=== PATIENT | female | born 1965 | race Caucasian/White ===

== ENCOUNTER → 2017-09-14 | Outpatient (CLI) | payer BC | LOC: COL.RAD 12:47 | DX: K80.20 Calculus of gallbladder without cholecystitis without obstruction (principal) ==

== ENCOUNTER → 2018-07-07 | Outpatient (CLI) | payer BC | LOC: MC.RAD 08:39 | DX: Z12.31 Encounter for screening mammogram for malignant neoplasm of breast (principal) ==

== ENCOUNTER → 2018-11-21 | Outpatient (CLI) | payer BC ==
[2018-11-21 11:23] LABS: ALBUMIN 4.1 gm/dL (3.5-5.0); CALCIUM 9.8 mg/dL (8.4-10.2); CHOLESTEROL RISK RATIO 4.4; CREATININE, serum 0.73 mg/dL (0.52-1.25); POTASSIUM 4.2 mmol/L (3.4-5.0); TOTAL PROTEIN 6.8 gm/dL (6.4-8.2)
[2018-11-21 11:52] LABS: THYROID STIMULATING HORMONE 1.32 uIU/mL (0.465-4.680)
[2018-11-22 00:28] LABS: FOLLICLE STIMULATING HORMONE 38.5 mIU/mL (()); LUTENIZING HORMONE 13.1 mIU/mL (())
[2018-11-22 11:15] LABS: PH 7 (5-8); SQUAMOUS EPITHELIAL 0-2 /hpf; URINE APPEARANCE Clear; URINE BACTERIA Rare /hpf; URINE BILIRUBIN Negative (NEGATIVE); URINE BLOOD 1+ (NEGATIVE); URINE COLOR Yellow; URINE GLUCOSE Negative (NEGATIVE); URINE KETONE Negative (NEGATIVE); URINE LEUKOCYTE ESTERASE Negative (NEGATIVE); URINE NITRATE Negative (NEGATIVE); URINE PROTEIN(semi-quant) Negative (NEGATIVE); URINE UROBILINOGEN Negative (NEGATIVE); URINE WBC 0-2 /hpf
[2018-11-22 11:42] LABS: COLLECTION METHOD CLEAN CATCH
[2018-11-22 14:37] LABS: BASO % 0.5 % (0.0-2.0); EOS # 0.1 (0.0-0.7); EOS % 1.7 % (0-4.0); GRAN # 3.5 (1.4-6.5); GRAN % 58.6 % (42.2-75.2); HEMOGLOBIN 14.3 g/dl (12.5-16.0); LYMPH # 1.9 (1.2-3.4); LYMPH % 30.9 % (20.0-51.0); MEAN CELL VOLUME 88 fl (80.0-100.0); MEAN CORPUSCULAR HEMOGLOBIN 30 pg (27.0-31.0); MEAN CORPUSCULAR HGB CONC 34 g/dl (33.0-37.0); MEAN PLATELET VOLUME 8.8 fl (7.4-10.4); MONO # 0.5 (0.1-0.6); MONO % 8.1 % (1.7-9.3); PLATELET COUNT 266 K/mm3 (130-400); RED BLOOD COUNT 4.75 M/mm3 (4.10-5.30); REDCELL DISTRIBUTION WIDTH-CV 13.7 % (11.5-14.5)
== END ==
LOC: COL.LAB 10:11
PROVIDERS: Emergency Medicine
DX: Z00.00 Encounter for general adult medical examination without abnormal findings (principal); R07.9 Chest pain, unspecified; R60.1 Generalized edema

== ENCOUNTER → 2018-11-21 | Outpatient (CLI) | payer BC | LOC: COL.LAB 10:14 | DX: R07.9 Chest pain, unspecified (principal) ==

== ENCOUNTER → 2018-11-28 | Outpatient (CLI) | payer BC ==
[~2018-11-28] MED LIST: ASPIRIN 81M81 MG/TA2 PO; BYSTOLIC5 MG PO; LIPITOR20 MG PO
[2018-11-28 06:41] VITALS: BP 156/76; PULSE 69
[2018-11-28 07:50] VITALS: BP 137/70; PULSE 69
[2018-11-28 07:58] VITALS: BP 147/70; PULSE 90
[2018-11-28 07:59] VITALS: BP 136/60; PULSE 88
[2018-11-28 08:00] VITALS: BP 127/63; PULSE 87
== END ==
LOC: COL.CARD 06:12
DX: R07.89 Other chest pain (principal); I10 Essential (primary) hypertension
CPT/HCPCS: A9500; J2785

== ENCOUNTER → 2018-12-15 | Outpatient (CLI) | payer BC | LOC: COL.VAS 12:50 | DX: M79.89 Other specified soft tissue disorders (principal) ==

== ENCOUNTER → 2019-05-08 | Outpatient (CLI) | payer BC ==
[~2019-05-08] VITALS: Ht 167.6 cm; Wt 106.5 kg
[~2019-05-08] MED LIST changes: +CLARITIN 1010 MG/TAB PO; +CLEOCIN HCL300 MG PO; +MOTRIN 200200 MG/TAB PO; +TYLENOL 500MG500 MG PO
[2019-05-08 10:20] VITALS: BP 148/82; PULSE 74
[2019-05-08 11:10] VITALS: BP 148/72; PULSE 58
== END ==
LOC: COL.RAD 09:58
DX: E07.9 Disorder of thyroid, unspecified (principal)

== ENCOUNTER → 2019-08-30 | Outpatient (CLI) | payer BC | LOC: MC.RAD 09:57 | DX: Z12.31 Encounter for screening mammogram for malignant neoplasm of breast (principal) ==

== ENCOUNTER → 2019-10-15 | Outpatient (CLI) | payer BC | LOC: COL.VAS 12:13 | DX: M79.89 Other specified soft tissue disorders (principal) ==

== ENCOUNTER → 2022-04-26 | Outpatient (CLI) | payer BC | LOC: COL.RAD 11:05 | DX: D3A.8 Other benign neuroendocrine tumors (principal) | CPT/HCPCS: Q9967 ==